=== PATIENT | male | born 1975 | race Caucasian/White ===

== ENCOUNTER → 2017-10-19 | Outpatient (CLI) | payer BC ==
--- NOTE | 2017-10-19 17:57 | P.STRESS ---
- Stress Test Note Stress Test Results/Findings: Exam Performed: stress echo exercise Exam Date: 10/19/17 Reason for Exam: TACHYCARDIA Height: 5 ft 7 in Weight: 87.543 kg Protocol: STRESS ECHO Stage: III Duration of Exercise: 9 Resting Heart Rate: 91 Resting Blood Pressure: 127/62 Maximum Achieved Heart Rate: 161 Maximum Achieved Blood Pressure: 183/77 85% PMHR: 90 100% PMHR: 178 METS: 10.5 Technologist Comment: Stress Test Results/Findings: This is a 42-year-old female with history of hypertension and palpitations being evaluated for Cardec status. Stress data Baseline EKG showed sinus rhythm with PA interval and QRS duration. Blood pressure at rest is 127/62 with pulse rate of 91. Patient walked on the Quinn protocol for 9 minutes achieving a maximum rate of 161 and blood pressure 183/77. EKGs taken during and after the exercise did not reveal significant changes from the baseline.. Echo data: Baseline echo images show normal wall motion and thickening. Exercise echo images showed augmentation of the wall motion and thickening in all the segments. Final impression: #1. Negative stress test #2. Negative stress echo.
--- NOTE | 2017-10-24 10:35 | ECHOS ---
Stress Test Results/Findings: Exam Performed: stress echo exercise Exam Date: 10/19/17 Reason for Exam: TACHYCARDIA Height: 5 ft 7 in Weight: 87.543 kg Protocol: STRESS ECHO Stage: III Duration of Exercise: 9 Resting Heart Rate: 91 Resting Blood Pressure: 127/62 Maximum Achieved Heart Rate: 161 Maximum Achieved Blood Pressure: 183/77 85% PMHR: 90 100% PMHR: 178 METS: 10.5 Technologist Comment: Stress Test Results/Findings: This is a 42-year-old female with history of hypertension and palpitations being evaluated for Cardec status. Stress data Baseline EKG showed sinus rhythm with NE interval and QRS duration. Blood pressure at rest is 127/62 with pulse rate of 91. Patient walked on the Quinn protocol for 9 minutes achieving a maximum rate of 161 and blood pressure 183/77. EKGs taken during and after the exercise did not reveal significant changes from the baseline.. Echo data: Baseline echo images show normal wall motion and thickening. Exercise echo images showed augmentation of the wall motion and thickening in all the segments. Final impression: #1. Negative stress test #2. Negative stress echo. NELLAD
== END | disposition home or self-care (01) ==
LOC: RADNMMAIN 10:03
PROVIDERS: ATTEND Family Medicine
DX: R00.0 Tachycardia, unspecified (principal)
CPT/HCPCS: 93351

== ENCOUNTER → 2020-03-09 | Outpatient (CLI) | payer BC ==
--- NOTE | 2020-03-09 10:56 | CT ---
EXAMINATION TYPE: CT sinus wo con DATE OF EXAM: 03/09/2020 COMPARISON: NONE HISTORY: Nasal obstruction per order. Sinus issues with pain for over [address] DLP: 596.50 mGycm. Automated Exposure Control for Dose Reduction was Utilized. TECHNIQUE: CT scan of the sinuses is performed without contrast, axial images are obtained, coronal r eformatted images are also reviewed. FINDINGS: Mild lobulated mucosal thickening involving the inferior maxillary sinuses, small air-fluid level in the left maxillary sinus. Mild to moderate mucosal thickening right greater than left at the level of the surgically treated et hmoid sinuses bilaterally. Frontal and sphenoid sinuses show no suspicious opacification bilaterally. The surgically treated ostiomeatal complex is patent bilaterally on coronal image 17. Asymmetric righ t-sided narrowing due to antral mucosal thickening is noted. Nasal septum slightly deviated to left o f midline. Visualized portion of mastoid air cells show no abnormal opacification. The globes are intact bilate rally. Visualized portion of brain parenchyma is unremarkable. IMPRESSION: Paranasal sinus surgical changes. Some mild to moderate residual chronic sinus disease in volving ethmoid and maxillary sinuses. Suspect mild left-sided acute maxillary sinusitis on current s tudy.
== END | disposition home or self-care (01) ==
LOC: RADCTMAIN 08:38
PROVIDERS: ATTEND Otolaryngology Facial Plastic Surgery
DX: J32.2 Chronic ethmoidal sinusitis (principal); J34.89 Other specified disorders of nose and nasal sinuses; Z98.890 Other specified postprocedural states
CPT/HCPCS: 70486

== ENCOUNTER 2021-01-16 02:12 | Observation (INO) | payer BC ==
[2021-01-16] MEDS ORDERED: SODIUM CHLORIDE 0.9% 1,000 ML IV STA (02:18)
[2021-01-16] MEDS ORDERED: METOPROLOL TARTRATE 5 MG/5 ML VIAL IVP STA (02:18)
[2021-01-16] MEDS ORDERED: DILTIAZEM DRIP BOLUS FROM BAG 1 MG SOLN IV ONE (02:18)
--- NOTE | 2021-01-16 02:21 | ED ---
Arrhythmia/Palpitations HPI - General Stated Complaint: Tachycardia Time Seen by Provider: 01/16/21 02:16 Source: patient, EMS Mode of arrival: EMS Limitations: no limitations - Related Data Home Medications Medication Instructions Recorded Confirmed Ibuprofen [Motrin] 200 mg PO DIRECTED PRN 03/31/14 03/31/14 Lisinopril [Zestril] 10 mg PO DAILY 03/31/14 03/31/14 Omeprazole(Dose Unknown) 1 tab PO DAILY 03/31/14 03/31/14 Allergies Allergy/AdvReac Type Severity Reaction Status Date / Time cephalexin monohydrate Allergy blisters Verified 03/31/14 14:01 [From [employer]] Review of Systems ROS Statement: Those systems with pertinent positive or pertinent negative responses have been documented in the HPI. ROS Other: All systems not noted in ROS Statement are negative. Past Medical History Past Medical History: GERD/Reflux, Hypertension Additional Past Medical History / Comment(s): hernia History of Any Multi-Drug Resistant Organisms: None Reported Past Surgical History: Tonsillectomy Additional Past Surgical History / Comment(s): EGD with dilitation, sinus surgery, larynx surgery Past Anesthesia/Blood Transfusion Reactions: No Reported Reaction Past Psychological History: No Psychological Hx Reported Smoking Status: Never smoker Past Alcohol Use History: Daily Past Drug Use History: Marijuana - Past Family History Father Family Medical History: Cancer General Exam Limitations: no limitations Course Vital Signs 01/16/21 01/16/21 01/16/21 02:16 02:22 02:33 Temperature 98 F Pulse Rate 163 H 161 H Pulse Rate [ 164 H Barrel Raiser ] Respiratory 18 18 Rate Blood Pressure 129/100 111/81 O2 Sat by Pulse 98 99 Oximetry 01/16/21 01/16/21 02:45 03:44 Temperature Pulse Rate 112 H 124 H Pulse Rate [ Barrel Raiser ] Respiratory 18 18 Rate Blood Pressure 117/85 112/76 O2 Sat by Pulse 99 94 L Oximetry EKG Findings - EKG Comments: EKG Findings:: EKG is A. fib with RVR 136 QRS 78 QTc 431 Medical Decision Making - Lab Data Result diagrams: 01/16/21 02:25 01/16/21 02:25 Lab Results 01/16/21 01/16/21 01/16/21 Range/Units 02:25 02:25 02:25 WBC 7.5 (3.8-10.6) k/uL RBC 4.73 (4.30-5.90) m/uL Hgb 15.3 (13.0-17.5) gm/dL Hct 42.9 (39.0-53.0) % MCV 90.9 (80.0-100.0) fL MCH 32.4 (25.0-35.0) pg MCHC 35.7 (31.0-37.0) g/dL RDW 12.4 (11.5-15.5) % Plt Count 275 (150-450) k/uL MPV 8.9 Neutrophils % 61 % Lymphocytes % 24 % Monocytes % 7 % Eosinophils % 5 % Basophils % 1 % Neutrophils # 4.5 (1.3-7.7) k/uL Lymphocytes # 1.8 (1.0-4.8) k/uL Monocytes # 0.5 (0-1.0) k/uL Eosinophils # 0.4 (0-0.7) k/uL Basophils # 0.1 (0-0.2) k/uL PT 9.9 (9.0-12.0) sec INR 0.9 (<1.2) APTT 23.2 (22.0-30.0) sec Sodium 141 (137-145) mmol/L Potassium 4.1 (3.5-5.1) mmol/L Chloride 107 (98-107) mmol/L Carbon Dioxide 21 L (22-30) mmol/L Anion Gap 13 mmol/L BUN 12 (9-20) mg/dL Creatinine 1.17 (0.66-1.25) mg/dL Est GFR (CKD-EPI)AfAm 87 (>60 ml/min/1.73 sqM) Est GFR (CKD-EPI)NonAf 75 (>60 ml/min/1.73 sqM) Glucose 99 (74-99) mg/dL Calcium 9.9 (8.4-10.2) mg/dL Magnesium 1.9 (1.6-2.3) mg/dL Total Bilirubin 0.3 (0.2-1.3) mg/dL AST 47 (17-59) U/L ALT 115 H (4-49) U/L Alkaline Phosphatase 91 (38-126) U/L Creatine Kinase 92 (55-170) U/L Troponin I (0.000-0.034) ng/mL Total Protein 7.1 (6.3-8.2) g/dL Albumin 4.3 (3.5-5.0) g/dL TSH 9.220 H (0.465-4.680) mIU/L Serum Alcohol 73 mg/dL 01/16/21 Range/Units 02:25 WBC (3.8-10.6) k/uL RBC (4.30-5.90) m/uL Hgb (13.0-17.5) gm/dL Hct (39.0-53.0) % MCV (80.0-100.0) fL MCH (25.0-35.0) pg MCHC (31.0-37.0) g/dL RDW (11.5-15.5) % Plt Count (150-450) k/uL MPV Neutrophils % % Lymphocytes % % Monocytes % % Eosinophils % % Basophils % % Neutrophils # (1.3-7.7) k/uL Lymphocytes # (1.0-4.8) k/uL Monocytes # (0-1.0) k/uL Eosinophils # (0-0.7) k/uL Basophils # (0-0.2) k/uL PT (9.0-12.0) sec INR (<1.2) APTT (22.0-30.0) sec Sodium (137-145) mmol/L Potassium (3.5-5.1) mmol/L Chloride (98-107) mmol/L Carbon Dioxide (22-30) mmol/L Anion Gap mmol/L BUN (9-20) mg/dL Creatinine (0.66-1.25) mg/dL Est GFR (CKD-EPI)AfAm (>60 ml/min/1.73 sqM) Est GFR (CKD-EPI)NonAf (>60 ml/min/1.73 sqM) Glucose (74-99) mg/dL Calcium (8.4-10.2) mg/dL Magnesium (1.6-2.3) mg/dL Total Bilirubin (0.2-1.3) mg/dL AST (17-59) U/L ALT (4-49) U/L Alkaline Phosphatase (38-126) U/L Creatine Kinase (55-170) U/L Troponin I <0.012 (0.000-0.034) ng/mL Total Protein (6.3-8.2) g/dL Albumin (3.5-5.0) g/dL TSH (0.465-4.680) mIU/L Serum Alcohol mg/dL Disposition Clinical Impression: Supraventricular tachycardia, Atrial fibrillation, Tachycardia, Palpitations, Atrial fibrillation with rapid ventricular response, New onset atrial fibrillation Disposition: ADMITTED IP TO THIS HOSP Condition: Fair Is patient prescribed a controlled substance at d/c from ED?: No Referrals: Ricardo Roper MD [Primary Care Provider] - 1-2 days
[2021-01-16] MEDS: DILTIAZEM 125 MG in SODIUM CHLORIDE 0.9% 100 ML IV SCH ×2 (02:32→11:29)
[2021-01-16 02:36] LABS: Basophils % (A) 1 %; Eosinophils % (A) 5 %; HCT 42.9 % (39.0-53.0); HGB 15.3 gm/dL (13.0-17.5); Lymphocytes % (A) 24 %; MCH 32.4 pg (25.0-35.0); MCHC 35.7 g/dL (31.0-37.0); MCV 90.9 fL (80.0-100.0); Mean Platelet Volume 8.9; Monocytes % (A) 7 %; Neutrophils # (A) 4.5 k/uL (1.3-7.7); Neutrophils % (A) 61 %; Platelet Count 275 k/uL (150-450); RBC 4.73 m/uL (4.30-5.90); RDW 12.4 % (11.5-15.5); WBC 7.5 k/uL (3.8-10.6)
[2021-01-16 02:37] LABS: Basophils # (A) 0.1 k/uL (0-0.2); Eosinophils # (A) 0.4 k/uL (0-0.7); Lymphocytes # (A) 1.8 k/uL (1.0-4.8); Monocytes # (A) 0.5 k/uL (0-1.0)
[2021-01-16 02:45] LABS: INR 0.9 (<1.2); Partial Thromboplastin Time 23.2 sec (22.0-30.0); Prothrombin Time 9.9 sec (9.0-12.0)
[2021-01-16 02:56] LABS: Albumin 4.3 g/dL (3.5-5.0); Calcium 9.9 mg/dL (8.4-10.2); Magnesium 1.9 mg/dL (1.6-2.3); Potassium 4.1 mmol/L (3.5-5.1); Total Bilirubin 0.3 mg/dL (0.2-1.3); Total Protein 7.1 g/dL (6.3-8.2)
[2021-01-16] MEDS ORDERED: NITROGLYCERIN SL TABS 0.4 MG TAB SUBLINGUAL PRN (03:52)
[2021-01-16] MEDS ORDERED: ASPIRIN 81 MG PO STA (03:52)
[2021-01-16] MEDS ORDERED: MORPHINE SULFATE 4 MG/ML SYRINGE IV PRN (03:52)
--- NOTE | 2021-01-16 04:39 | P.HPIM ---
History of Present Illness H&P Date: 01/16/21 The patient is a 45-year-old male with a PMH of hypertension who presented to the emergency room with complaints of sudden onset of palpitations. The patient reports that he was in his usual state of health and was at a get together with some friends at a bonfire and had been in a hot tub when he suddenly felt palpitations. He got out of the hot tub and sat down, and after the palpitations persisted for a few minutes, the patient's called EMS. Patient was noted to be in A. fib with RVR on EKG in the emergency room at 156 bpm. The patient denied experiencing chest discomfort or shortness or breath, nausea, vomiting, diaphoresis. He also denied experiencing dizziness, abdominal pain, diarrhea, fever, chills, cough. Laboratory evaluation the emergency room was remarkable for TSH of 9.2. Patient reports that he was diagnosed with COVID-19 roughly 10 days ago. He is vaccinated and received a [employer] vaccine in July of this year Review of systems: Pertinent positives and negatives as discussed in HPI, a complete review of systems was performed and all other systems are negative. Physical examination: General: non toxic, no distress, appears at stated age, obese Derm: no unusual rashes/lesions no unusual ecchymoses, warm, dry Head: atraumatic, normocephalic, symmetric Eyes: EOMI, no lid lag, anicteric sclera, pupils equal round reactive to light ENT: Nose and ears atraumatic, no thrush, no pharyngeal erythema Neck: No thyromegaly, no cervical lymphadenopathy, trachea midline, supple Mouth: no lip lesion, mucus membranes moist Cardiovascular: Irregularly irregular, no murmur, positive posterior tibial pulse bilateral, no edema, capillary refill less than 2 seconds Lungs: CTA bilateral, no rhonchi, no rales , no accessory muscle use Abdominal: soft, nontender to palpation, no guarding, no appreciable organomegaly, normal bowel sounds Ext: no gross muscle atrophy, muscle strength 5 out of 5 in all 4 extremities grossly, no contractures, Neuro: CN II-XI grossly intact, light touch intact all 4 extremities, finger to nose within normal limits, Psych: Alert, oriented, appropriate affect Assessment/plan New onset A. fib with RVR -CHADS-VASc score 1 -Continue Cardizem infusion -Defer management regarding anticoagulation to cardiology service -Cardiac monitoring -Echocardiogram Elevated TSH -Obtain T3 and T4 levels Chronic conditions: Hypertension -Continue with home meds DVT prophylaxis -Heparin subcu The patient is admitted with an anticipated less than 2 midnight stay for evaluation of afib w/ rvr. CODE STATUS:Full Code Discussed with: Patient Anticipated discharge date: in am Anticipated discharge place: Home Past Medical History Past Medical History: GERD/Reflux, Hypertension Additional Past Medical History / Comment(s): hernia History of Any Multi-Drug Resistant Organisms: None Reported Past Surgical History: Tonsillectomy Additional Past Surgical History / Comment(s): EGD with dilitation, sinus surgery, larynx surgery Past Anesthesia/Blood Transfusion Reactions: No Reported Reaction Past Psychological History: No Psychological Hx Reported Smoking Status: Never smoker Past Alcohol Use History: Daily Past Drug Use History: Marijuana - Past Family History Father Family Medical History: Cancer Medications and Allergies Home Medications Medication Instructions Recorded Confirmed Type Ibuprofen [Motrin] 200 mg PO DIRECTED PRN 03/31/14 03/31/14 History Lisinopril [Zestril] 10 mg PO DAILY 03/31/14 03/31/14 History Omeprazole(Dose Unknown) 1 tab PO DAILY 03/31/14 03/31/14 History Allergies Allergy/AdvReac Type Severity Reaction Status Date / Time cephalexin monohydrate Allergy blisters Verified 03/31/14 14:01 [From Keflex] Physical Exam Vitals: Vital Signs Temp Pulse Pulse Resp BP Pulse Ox 01/16/21 03:44 124 H 18 112/76 94 L 01/16/21 02:45 112 H 18 117/85 99 01/16/21 02:33 161 H 18 111/81 99 01/16/21 02:22 164 H 01/16/21 02:16 98 F 163 H 18 129/100 98 Intake and Output 01/15/21 01/15/21 01/16/21 14:59 22:59 06:59 Intake Total 4.167 Balance 4.167 Intake: Intake, IV Titration 4.167 Amount Diltiazem 125 mg In 4.167 Sodium Chloride 0.9% 100 ml @ 5 MG/HR 5 mls/hr IV .Q24H MADELEINE Rx#:[id number] Other: Weight 95.254 kg Results CBC & Chem 7: 01/16/21 02:25 01/16/21 02:25 Labs: Abnormal Lab Results - Last 24 Hours (Table) 01/16/21 Range/Units 02:25 Carbon Dioxide 21 L (22-30) mmol/L ALT 115 H (4-49) U/L TSH 9.220 H (0.465-4.680) mIU/L
[2021-01-16] MEDS ORDERED: HEPARIN SODIUM,PORCINE/PF 5,000 UNIT/0.5 ML SYRINGE SQ SCH (08:00)
[2021-01-16] MEDS ORDERED: METOPROLOL TARTRATE 25 MG TAB PO SCH (09:00)
--- NOTE | 2021-01-16 10:03 | P.PN ---
Subjective Progress Note Date: 01/16/21 Patient was seen and evaluated by me today. Heart rate still not well controlled. Objective - Vital Signs Vital signs: Vital Signs Temp 97.2 F L 01/16/21 07:35 Pulse 120 H 01/16/21 07:35 Resp 18 01/16/21 07:35 BP 101/72 01/16/21 07:35 Pulse Ox 97 01/16/21 07:35 Intake & Output 01/15/21 01/16/21 01/16/21 18:59 06:59 18:59 Intake Total 4.167 520 Balance 4.167 520 Weight 95.254 kg Intake: Intake, IV Titration 4.167 Amount Diltiazem 125 mg In 4.167 Sodium Chloride 0.9% 100 ml @ 5 MG/HR 5 mls/hr IV .Q24H MADELEINE Rx#:[id number] Oral 520 Other: # Voids 1 - Exam General: The patient is awake and alert, in no distress Eye: there is normal conjunctiva bilaterally. Neck: The neck is supple, there is no JVD. Cardiovascular: Normal S1-S2, no S3-S4, no murmurs. Irregularly irregular rhythm Respiratory: Lungs clear to auscultation bilaterally Gastrointestinal: Abdomen is soft, nontender Musculoskeletal: There is no pedal edema. Neurological:. Speech is normal. Skin: Skin is warm and dry - Labs CBC & Chem 7: 01/16/21 02:25 01/16/21 02:25 Labs: Abnormal Lab Results - Last 24 Hours (Table) 01/16/21 Range/Units 02:25 Carbon Dioxide 21 L (22-30) mmol/L ALT 115 H (4-49) U/L TSH 9.220 H (0.465-4.680) mIU/L Assessment and Plan Assessment: This is a 45-year-old male with past medical history noted below who presented to the emergency room with chief complaint of palpitation. Patient was evaluated in the ER and placed in observation for further management of his medical problems noted below. 1. New onset atrial fibrillation with rapid ventricular response, patient is currently on IV Cardizem drip and metoprolol 25 mg twice daily. Awaiting cardiology evaluation. Patient was started on full dose aspirin daily. Echocardiogram ordered. Continue telemetry monitoring. 2. Mildly elevated TSH with normal free T4. Recommend repeat lab work in 3-4 weeks as an outpatient 3. Essential hypertension, blood pressure well-controlled 4. COVID-19 positive infection in the patient. Patient is asymptomatic. We wi ll continue supportive care. 5. DVT prophylaxis with subcu heparin
[2021-01-16] MEDS ORDERED: METOPROLOL TARTRATE 25 MG TAB PO STA (10:36)
[2021-01-16] MEDS: APIXABAN 5 MG TAB PO SCH ×2 (11:23→20:20)
[2021-01-16] MEDS: ACETAMINOPHEN TAB 325 MG TAB PO PRN ×2 (11:33→18:53)
--- NOTE | 2021-01-16 12:31 | CONS ---
CONSULTATION HISTORY OF PRESENT ILLNESS: Mr. Rockwell is a 45-year-old male with a history of hypertension who presented to the emergency room with symptoms of palpitations not feeling well. The patient has a history of hypertension. He was at home yesterday. He had 4-6 alcoholic drinks, then he was in the hot tub, and then was not feeling well. He went out and kind of cooled down, but continued not to feel well with the palpitations. Checked his pulse oximetry that showed normal oxygenation but evidence of rapid heart rate. He came into the emergency room and noted to be in atrial fibrillation with rapid ventricular response. The patient is unaware of a prior history of atrial fibrillation. He is not very active physically but has no significant cardiac issue according to him. He had a prior cardiac workup including a stress test in October of 2017 that revealed no evidence of inducible ischemia. His left ventricular systolic function was preserved at that time. He continues to be in atrial fibrillation at this time. He tested positive for Covid 19 recently following a trip to [place] with mild symptoms. He has been vaccinated. He is asymptomatic at this time. He drinks alcohol 3-4 times a week, but more on the weekend. He has no history of smoking. Usually he has no symptoms of dyspnea on exertion. No peripheral edema. No PND, no orthopnea, and no chest discomfort. MEDICATIONS: His medications at home included omeprazole and Prinivil 20 mg daily. REVIEW OF SYSTEMS: RESPIRATORY system: He has no documented history of asthma, emphysema or bronchitis. GI system: No recent GI bleeding. No peptic ulcer disease. system: No dysuria or hematuria. NERVOUS SYSTEM: No stroke or seizure. PHYSICAL EXAMINATION: He is a 45-year-old male, alert, oriented, in no apparent distress. Blood pressure running in the 100-120 with a heart rate in the 100s afebrile. HEAD: Normocephalic. Eyes sclerae anicteric. NECK: Good carotid upstroke. No bruit. No jugular venous distention. LUNGS: Clear to auscultation. Heart irregularly irregular S1, S2. No S3. No rub or gallop. ABDOMEN: Soft, nontender. Positive bowel sounds. No organomegaly. EXTREMITIES: No edema. LAB DATA: Lab data revealed a TSH of 9.2. Free T4 1.1. Alcohol level of 73. BUN and creatinine of 12 and 1.7, potassium 4.1, hemoglobin 15.3. EKG revealed atrial fibrillation with rapid ventricular response, rate of 156, and nonspecific ST-T wave changes. IMPRESSION: 1. Atrial fibrillation with rapid ventricular response, new onset, could be related to the alcohol intake. 2. History of hypertension. RECOMMENDATION: I will increase the dose of his beta emily. I will start him on anticoagulation, stop his aspirin. If he continues to be in atrial fibrillation, then I would recommend to consider cardioversion as an outpatient. Depending on his progress, further recommendations will be made. His CHADS VASc score is 1, but I will initiate anticoagulation and once he is back in sinus mechanism, that can be stopped. MMODL / IJN: [id number] /
[2021-01-16] MEDS: METOPROLOL TARTRATE 25 MG TAB PO SCH (20:21)
[2021-01-17] MEDS: ACETAMINOPHEN TAB 325 MG TAB PO PRN (06:03)
[2021-01-17] MEDS: APIXABAN 5 MG TAB PO SCH (08:06)
[2021-01-17] MEDS: METOPROLOL TARTRATE 25 MG TAB PO SCH (08:06)
[2021-01-17 08:12] VITALS: RESP 16
[2021-01-17 08:40] LABS: African American GFR (CKD) >90 (>60 ml/min/1.73 sqM); Anion Gap 10 mmol/L; Blood Urea Nitrogen 15 mg/dL (9-20); Calcium 9.4 mg/dL (8.4-10.2); Carbon Dioxide 24 mmol/L (22-30); Chloride 104 mmol/L (98-107); Glucose 93 mg/dL (74-99); Non-African American GFR(CKD) 89 (>60 ml/min/1.73 sqM); Potassium 4.4 mmol/L (3.5-5.1); Sodium 138 mmol/L (137-145)
[2021-01-17] MEDS ORDERED: ASPIRIN 325 MG TAB PO SCH (09:00)
--- NOTE | 2021-01-17 11:53 | P.DS ---
Providers Date of admission: 01/16/21 03:52 Expected date of discharge: 01/17/21 Attending physician: Patti Guthrie MD Consults: 01/16/21 03:52 Consult Physician Urgent Consulting Provider: Chantel Alejo Consult Reason/Comments: NewAfibRVR Do you want consulting provider notified?: Yes Primary care physician: [facility] Course: This is a 45-year-old male with past medical history noted below who presented to the emergency room with chief complaint of palpitation. Patient was evaluated in the ER and placed in observation for further management of his medical problems noted below. 1. New onset atrial fibrillation with rapid ventricular response: Requiring IV Cardizem drip on presentation. Patient converted spontaneously to normal sinus rhythm. He was seen and evaluated by cardiology. Started on metoprolol 50 mg twice daily. Cardiology would like to start the patient on Eliquis for now and follow-up in the office with possible discontinuation of anticoagulation at that time. Echocardiogram ordered and pending results. 2. Mildly elevated TSH with normal free T4. Recommend repeat lab work in 3-4 weeks as an outpatient 3. Essential hypertension, blood pressure well-controlled 4. COVID-19 positive infection in the patient. Patient is asymptomatic. We will continue supportive care. Patient will be discharged home in a stable condition. Follow-up with cardiology and PCP as directed. Physical exam: General: The patient is awake and alert, in no distress Eye: there is normal conjunctiva bilaterally. Neck: The neck is supple, there is no JVD. Cardiovascular: Normal S1-S2, no S3-S4, no murmurs. Respiratory: Lungs clear to auscultation bilaterally Gastrointestinal: Abdomen is soft, nontender Musculoskeletal: There is no pedal edema. Neurological:. Speech is normal. Skin: Skin is warm and dry Patient Condition at Discharge: Fair Plan - Discharge Summary Discharge Rx Participant: No New Discharge Prescriptions: New Apixaban [Eliquis] 5 mg PO BID #60 tab Metoprolol Tartrate [Lopressor] 50 mg PO BID #180 tab Discontinued lisinopriL [Prinivil] 20 mg PO DAILY No Action Omeprazole 40 mg PO DAILY Discharge Medication List Omeprazole 40 mg PO DAILY 01/16/21 [History] Apixaban [Eliquis] 5 mg PO BID #60 tab 01/17/21 [Rx] Metoprolol Tartrate [Lopressor] 50 mg PO BID #180 tab 01/17/21 [Rx] Follow up Appointment(s)/Referral(s): Chantel Alejo MD [STAFF PHYSICIAN] - 2 Weeks Ricardo Roper MD [Primary Care Provider] - 1-2 days Patient Instructions/Handouts: A-fib (Atrial Fibrillation) (ED), Heart Palpitations (ED), Blood Thinners (ED) Discharge Disposition: HOME SELF-CARE
[2021-01-17 12:34] VITALS: BP 123/84; PULSE 84; TEMP 98.4
--- NOTE | 2021-01-17 13:00 | ECHOF ---
Referral Reason:afib MEASUREMENTS -------- HEIGHT: 170.2 cm WEIGHT: 100.2 kg BP: 111/75 RVIDd: 3.1 cm (< 3.3) IVSd: 1.0 cm (0.6 - 1.1) LVIDd: 4.4 cm (3.9 - 5.3) LVPWd: 1.2 cm (0.6 - 1.1) IVSs: 1.3 cm LVIDs: 2.9 cm LVPWs: 1.8 cm LA Diam: 4.1 cm (2.7 - 3.8) Ao Diam: 2.9 cm (2.0 - 3.7) AV Cusp: 2.2 cm (1.5 - 2.6) LA Diam: 4.1 cm (2.7 - 3.8) MV EXCURSION: 21.518 mm (> 18.000) MV EF SLOPE: 75 mm/s (70 - 150) EPSS: 0.2 cm MV E Fabrice: 0.35 m/s MV DecT: 212 ms MV A Fabrice: 0.60 m/s MV E/A Ratio: 0.58 RAP: 5.00 mmHg RVSP: 13.49 mmHg FINDINGS -------- Sinus rhythm. This was a technically good study. LV size, wall thickness and systolic function are normal, with an EF greater than 55%. The left alyssa tricular size is normal. The right ventricle is normal in size. The right atrial size is normal. The aortic valve is trileaflet, and appears structurally normal. No aortic stenosis or regurgitation. Mild mitral regurgitation is present. Mild tricuspid regurgitation present. Right ventricular systolic pressure is normal at < 35 mmHg. There is no pulmonic regurgitation present. Echo free space represents a pericardial fat pad. CONCLUSIONS -------- 1. LV size, wall thickness and systolic function are normal, with an EF greater than 55%. 2. The left ventricular size is normal. 3. The right ventricle is normal in size. 4. The right atrial size is normal. 5. The aortic valve is trileaflet, and appears structurally normal. No aortic stenosis or regurgitati on. 6. Mild mitral regurgitation is present. 7. Mild tricuspid regurgitation present. 8. Echo free space represents a pericardial fat pad. [employer] MA[employer]GER: Isi Garcia RDCS
--- NOTE | 2021-01-17 13:53 | P.PN ---
Subjective This is a pleasant 45-year-old male past medical history significant for hypertension, gastroesophageal reflux disease obstructive sleep apnea and daily alcohol use. He has converted to sinus mechanism and is maintaining that at this time with a blood pressure of 120/81 heart rate 88 afebrile maintaining oxygen saturation on room air. Currently maintained on Eliquis 5 mg twice a day and metoprolol 50 mg twice a day. GENERAL: Well-appearing, well-nourished and in no acute distress. NECK: Supple without JVD or thyromegaly. LUNGS: Breath sounds clear to auscultation bilaterally. Respiration equal and unlabored. No wheezes, rales or rhonchi. HEART: Regular rate and rhythm without murmurs, rubs or gallops. S1 and S2 heard. EXTREMITIES: Normal range of motion, no edema. No clubbing or cyanosis. Peripheral pulses intact. ASSESSMENT New onset paroxysmal atrial fibrillation with rapid ventricular response, converted to sinus mechanism Hypertension Daily alcohol intake Obstructive sleep apnea PLAN Currently CHADS-VASC score is 1. Therefore technician terminal and repeater anticoagulation is not indicated. We will await the echo report to make definitive decision. Per Dr. Alejo he would like the patient to go home on eliquis and will make further decisions regarding this in the office. Advised the pt regular use of his CPAP will assist in keeping him out of atrial fibrillation. I also recommended complete alcohol cessation. Once his echo is back he can likely be discharged home this afternoon. Nurse Practitioner note has been reviewed, I agree with a documented findings and plan of care. Patient was seen and examined. Objective - Vital Signs Vital signs: Vital Signs Temp 98.2 F 01/17/21 08:05 Pulse 88 01/17/21 08:05 Resp 16 01/17/21 08:05 BP 120/81 01/17/21 08:05 Pulse Ox 99 01/17/21 08:05 Intake & Output 01/16/21 01/17/21 01/17/21 18:59 06:59 18:59 Intake Total 1131.167 126 610 Output Total 1200 Balance -68.833 126 610 Weight 100.5 kg Intake: IV 10 20 10 Invasive Line 1 10 20 10 Intake, IV Titration 81.167 106 Amount Diltiazem 125 mg In 81.167 106 Sodium Chloride 0.9% 100 ml @ 10 MG/HR 10 mls/hr IV .[id number] Rx#: [id number] Oral 1040 600 Output: Urine 1200 Other: # Voids 0 - Labs CBC & Chem 7: 01/16/21 02:25 01/17/21 06:56
== END 2021-01-17 15:16 | disposition home or self-care (01) ==
LOC: EC 02:12 → 3SCARD 03:52 → UNDOADMIN 03:52 → 3SCARD 03:52
PROVIDERS: ADMIT Internal Medicine; ATTEND Internal Medicine
DX: I48.0 Paroxysmal atrial fibrillation (principal); U07.1 COVID-19; I47.1 Supraventricular tachycardia; I10 Essential (primary) hypertension; R94.6 Abnormal results of thyroid function studies; G47.33 Obstructive sleep apnea (adult) (pediatric); K21.9 Gastro-esophageal reflux disease without esophagitis; Z79.899 Other long term (current) drug therapy; Z88.1 Allergy status to other antibiotic agents; Z98.890 Other specified postprocedural states; Z72.89 Other problems related to lifestyle; Z80.9 Family history of malignant neoplasm, unspecified
CPT/HCPCS: 96366 ×2; 96372; 96376; 96365; 99285; 36415; 93005; 93306; 84439; 80053; 80048; 82550; 83735 ×2; 84443; 84484; 85025; 85610; 85730; 84480; 80320; G0378 ×2; J1644

== ENCOUNTER → 2021-08-25 | Outpatient (CLI) | payer OTHER, BC ==
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
== END | disposition home or self-care (01) ==
LOC: RADCTMAIN 06:48
PROVIDERS: ATTEND Orthopaedic Surgery Hand Surgery
DX: Z47.89 Encounter for other orthopedic aftercare (principal); S62.024D Nondisplaced fracture of middle third of navicular [scaphoid] bone of right wrist, subsequent encounter for fracture with routine healing; X58.XXXD Exposure to other specified factors, subsequent encounter

== ENCOUNTER → 2022-01-06 | Outpatient (CLI) | payer OTHER, BC ==
--- NOTE | 2022-01-06 09:57 | CT ---
EXAMINATION TYPE: CT wrist RT wo con DATE OF EXAM: 01/06/2022 COMPARISON: CT right wrist August 25, 2021 and outside right wrist x-rays October 07, 2021 HISTORY: Scaphoid Fracture CT DLP: 72.20 mGycm Automated exposure control for dose reduction was used. FINDINGS: Redemonstration of a fixating screw through the minimally displaced oblique fracture mid portion or w aist of the scaphoid. This extends and penetrates the distal bone oh the distal articular surface wit h the trapezium unchanged from prior study. Slight interval resorption but still visualization of clara ear line or lucency. Carpal joint spaces are maintained. No new fracture is evident. Overlying soft t issue is unremarkable. IMPRESSION: Interval slight healing of internally fixed minimally displaced fracture mid portion of t he scaphoid.
== END | disposition home or self-care (01) ==
LOC: RADCTMAIN 08:39
PROVIDERS: ATTEND Orthopaedic Surgery Hand Surgery
DX: S62.024D Nondisplaced fracture of middle third of navicular [scaphoid] bone of right wrist, subsequent encounter for fracture with routine healing (principal); M25.531 Pain in right wrist; Z47.89 Encounter for other orthopedic aftercare; X58.XXXD Exposure to other specified factors, subsequent encounter

== ENCOUNTER → 2022-05-01 | Outpatient (CLI) | payer OTHER, BC ==
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
== END | disposition home or self-care (01) ==
LOC: RADCTMAIN 08:29
PROVIDERS: ATTEND Orthopaedic Surgery Hand Surgery
DX: Z47.89 Encounter for other orthopedic aftercare (principal); S62.024D Nondisplaced fracture of middle third of navicular [scaphoid] bone of right wrist, subsequent encounter for fracture with routine healing

== ENCOUNTER → 2022-10-20 | Outpatient (CLI) | payer OTHER, BC ==
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
== END | disposition home or self-care (01) ==
LOC: RADCTMAIN 14:56
PROVIDERS: ATTEND Orthopaedic Surgery Hand Surgery
DX: S62.024D Nondisplaced fracture of middle third of navicular [scaphoid] bone of right wrist, subsequent encounter for fracture with routine healing (principal)

== ENCOUNTER 2023-03-23 12:51 | Day surgery (SDC) | payer BC ==
[2023-03-21 10:36] VITALS: BMI 34.4
[~2023-03-23 12:51] MED LIST: LACTATED RINGERS 1,000 ML IV SCH; LIDOCAINE 1% (10MG/ML) FOR IV START INTRADERMA PRN
[2023-03-23 13:36] VITALS: TEMP 97
[2023-03-23] MEDS ORDERED: PROPOFOL 10 MG/ML 20 ML VIAL IV ONE (14:35)
--- NOTE | 2023-03-23 14:49 | P.PCN ---
Date of Procedure: 03/23/23 Procedure(s) Performed: BRIEF HISTORY: Patient is a 47-year-old, pleasant, white male scheduled for an upper endoscopy as a part of evaluation of GERD/Johnson's esophagus. Presently on omeprazole 40 mg daily and doing well.. PROCEDURE PERFORMED: Esophagogastroduodenoscopy with biopsy. PREOPERATIVE DIAGNOSIS: GERD/Johnson's esophagus. IV sedation per anesthesia. PROCEDURE: After informed consent was obtained, the patient was brought into the endoscopy unit. IV sedation was administered by Anesthesia under continuous monitoring. Initially the Olympus GIF-140 video endoscope was inserted into the mouth. Esophagus intubated without any difficulty. It was gradually advanced into the stomach and duodenum and carefully examined. The bulb and the second part of the duodenum appeared normal. The scope at this time was withdrawn to the stomach, adequately insufflated with air, and upon careful examination, mucosa of the antrum had mild gastritis and biopsies were done from this area. Mucosa of the, body, cardia and the fundus appeared normal. The scope was then withdrawn into the esophagus. Small hiatal hernia noted. The GE junction was located at 39 cm from the incisors. The short segment of Johnson's esophagus extending 1 cm proximal to the GE junction which was biopsied. The rest of the esophagus appeared normal. There were no erosions or ulcerations seen and the patient tolerated the procedure well. IMPRESSION: 1. Small hiatal hernia and short segment Johnson's esophagus. 2. Mild antral gastritis. RECOMMENDATIONS: The findings of this examination were discussed with the patient as well as his family. He was advised to follow with the biopsy results. If the biopsy reveals Johnson's esophagus he can have a repeat upper endoscopy in 3 years.. In the meantime he will continue with omeprazole 40 mg daily and follow antireflux measures.
[2023-03-23 15:20] VITALS: BP 133/89; PULSE 78; RESP 16
== END 2023-03-23 15:44 | disposition home or self-care (01) ==
LOC: ORWHC2ENDO 12:51
PROVIDERS: ATTEND Internal Medicine Gastroenterology
DX: K29.50 Unspecified chronic gastritis without bleeding (principal); K22.70 Barrett's esophagus without dysplasia; K44.9 Diaphragmatic hernia without obstruction or gangrene; K21.9 Gastro-esophageal reflux disease without esophagitis; I10 Essential (primary) hypertension; I48.91 Unspecified atrial fibrillation; G47.33 Obstructive sleep apnea (adult) (pediatric); F17.200 Nicotine dependence, unspecified, uncomplicated; Z79.899 Other long term (current) drug therapy; Z88.1 Allergy status to other antibiotic agents
CPT/HCPCS: 43239; 88305; 88342; J2704

== ENCOUNTER → 2023-09-25 | Outpatient (CLI) | payer OTHER, BC ==
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
== END | disposition home or self-care (01) ==
LOC: RADCTMAIN 08:31
PROVIDERS: ATTEND Orthopaedic Surgery Hand Surgery
DX: Z47.89 Encounter for other orthopedic aftercare (principal); S62.024G Nondisplaced fracture of middle third of navicular [scaphoid] bone of right wrist, subsequent encounter for fracture with delayed healing; X58.XXXD Exposure to other specified factors, subsequent encounter